=== PATIENT | female | born 1935 | race Caucasian/White ===

== ENCOUNTER → 2017-07-30 | Outpatient (CLI) | payer OTHER, MEDICARE ==
[~2017-07-30] MED LIST: ACET-1311 PO; ADVIN25050 INH; ALBU1AER9 INH; ASPCH81 PO; ATOR10TA82 PO; CETI10TA84 PO; MELO15TA3 PO; MULT-506 PO; NIFE20CA PO; OMEG10007 PO; OXYC-57 PO; PRLSR20 PO; PXL20 PO; cranberry PO; vitamin d3 PO
== END | disposition home or self-care (01) ==
LOC: C.MAMM 09:21
PROVIDERS: ATTEND Internal Medicine
DX: M81.0 Age-related osteoporosis without current pathological fracture (principal)